=== PATIENT | female | born 1985 | race Asian ===

== ENCOUNTER 2017-07-23 20:10 | Inpatient (IN) | payer SELFPAY ==
[~2017-07-23] VITALS: Ht 160 cm; Wt 55.3 kg
[2017-07-23] MEDS ORDERED: MISOPROSTOL 25 MCG TAB VG PRN (20:45)
[2017-07-23] MEDS: LACTATED RINGERS 1,000 ML IV SCH (21:20)
[2017-07-23 21:57] LABS: BASOPHILS # (AUTO) 0.1 K/uL (0.00-0.22); BASOPHILS % (AUTO) 0.6 % (0.0-2.0); EOSINOPHILS # (AUTO) 0.1 K/uL (0-0.4); HEMATOCRIT 33.8 % (36-48); HEMOGLOBIN 10.8 g/dL (12.0-16.0); LYMPHOCYTES # (AUTO) 1.8 K/uL (2.5-16.5); LYMPHOCYTES % (AUTO) 16.9 % (20.5-51.1); MEAN CORPUSCULAR HEMOGLOBIN 28 pg (27-31); MEAN CORPUSCULAR HGB CONC 32 g/dL (33-37); MEAN CORPUSCULAR VOLUME 86 fL (80-94); MONOCYTES # (AUTO) 0.5 K/uL (0.8-1.0); MONOCYTES % (AUTO) 4.4 % (1.7-9.3); NEUTROPHILS # (AUTO) 8.1 K/uL (1.8-7.7); NEUTROPHILS % (AUTO) 77.1 % (42.2-75.2); PLATELET COUNT (AUTO) 249 K/uL (140-450); RED BLOOD CELL COUNT(AUTO) 3.91 MIL/uL (4.20-5.40); RED CELL DISTRIBUTION WIDTH 14.2 % (11.6-13.7); WHITE BLOOD COUNT (AUTO) 10.6 K/uL (4.8-10.8)
[2017-07-23 22:07] LABS: APPEARANCE,URINE CLEAR (CLEAR); BILIRUBIN,URINE NEGATIVE (NEGATIVE); BLOOD, URINE NEGATIVE (NEGATIVE); COLOR,URINE YELLOW (YELLOW); LEUKOCYTE ESTERASE ,URINE NEGATIVE (NEGATIVE); NITRITE, URINE NEGATIVE (NEGATIVE); PH,URINE 6.5 (5.0-9.0); UGLUCOSE NEGATIVE (NEGATIVE)
[2017-07-23 22:12] LABS: ANION GAP 14.1 (8-16); CARBON DIOXIDE 21.5 mmol/L (21-32); CREATININE 0.7 mg/dL (0.6-1.3); POTASSIUM 3.6 mmol/L (3.5-5.1)
[2017-07-23 22:18] LABS: ALBUMIN 2.5 g/dL (3.4-5.0); TOTAL BILIRUBIN 0.5 mg/dL (0.0-1.0)
[2017-07-23] MEDS ORDERED: OXYTOCIN 10 UNITS/ML VIAL IM SCH (22:20)
[2017-07-23] MEDS ORDERED: METHYLERGONOVINE 0.2 MG/ML AMP IM PRN (22:20)
[2017-07-23] MEDS ORDERED: NALBUPHINE HYDROCHLORIDE 10 MG/ML VIAL IVP PRN (22:20)
[2017-07-23] MEDS ORDERED: PROMETHAZINE 25 MG/ML VIAL IVP PRN (22:20)
[2017-07-23] MEDS ORDERED: OXYTOCIN 20 UNITS in LACTATED RINGERS 1,000 ML IV SCH (22:20)
[2017-07-23] MEDS ORDERED: LACTATED RINGERS 500 ML IV ONE (22:20)
[2017-07-23 22:51] LABS: PROTHROMBIN TIME 9.7 secs (10.8-13.4)
[2017-07-23] MEDS ORDERED: AMPICILLIN 2,000 MG in NACL 0.9% MINI-BAG PLUS 100 ML IV SCH (23:00)
[2017-07-23] MEDS ORDERED: MISOPROSTOL 25 MCG TAB ONE (23:11)
[2017-07-23] MEDS ORDERED: AMPICILLIN 2,000 MG VIAL ONE (23:11)
[2017-07-24] MEDS ORDERED: AMPICILLIN 1,000 MG VIAL ONE ×4 (02:30→15:08)
[2017-07-24] MEDS: AMPICILLIN 1,000 MG in NACL 0.9% MINI-BAG PLUS 50 ML IV SCH ×4 (03:06→15:04)
[2017-07-24 03:14] VITALS: BP 122/63
[2017-07-24] MEDS ORDERED: OXYTOCIN 20 UNITS/LR PREMIX 1,000 ML IV ONE (04:56)
[2017-07-24] MEDS ORDERED: MISOPROSTOL 25 MCG TAB VG PRN (07:20)
[2017-07-24] MEDS: LACTATED RINGERS 1,000 ML IV SCH ×2 (08:33→11:02)
--- NOTE | 2017-07-24 09:05 | NUR ---
PATIENT HAS BEEN SCREENED AND CATEGORIZED LOW NUTRITION RISK. PATIENT WILL BE SEEN WITHIN 7 DAYS OF ADMISSION. 07/30/[address]
[2017-07-24] MEDS ORDERED: BUPIVACAINE 0.125%/NS PREMIX 250 ML ONE (09:51)
[2017-07-24] MEDS ORDERED: OXYTOCIN 10 UNITS/ML VIAL ONE (17:23)
[2017-07-24] MEDS ORDERED: MEASLES, MUMPS, AND RUBELLA 1 VIAL SQVAC PRN (18:45)
[2017-07-24] MEDS ORDERED: HYDROcodone/APAP 5/325 MG 1 TAB TAB PO PRN (18:45)
[2017-07-24] MEDS ORDERED: TEMAZEPAM 15 MG CAP PO PRN (18:45)
[2017-07-24] MEDS ORDERED: SODIUM PHOSPHATE 118 ML ENEM RC PRN (18:45)
[2017-07-24] MEDS ORDERED: BENZOCAINE/MENTHOL 20%-0.5% 60 GM CAN TP PRN (18:45)
[2017-07-24] MEDS ORDERED: oxyCODONE/APAP 5/325 MG 1 TAB TAB PO PRN (18:45)
[2017-07-24] MEDS ORDERED: DOCUSATE SOD/SENNA 50/8.6 MG 1 TAB PO SCH (21:00)
[2017-07-24] MEDS ORDERED: OXYTOCIN 20 UNITS in LACTATED RINGERS 1,000 ML IV SCH (22:20)
[2017-07-24] MEDS: IBUPROFEN 800 MG TAB PO PRN (22:26)
[2017-07-25] MEDS ORDERED: BETHANECHOL 25 MG TAB ONE (01:22)
[2017-07-25] MEDS: BETHANECHOL 5 MG TAB PO SCH ×2 (01:56→13:00)
[2017-07-25] MEDS: IBUPROFEN 800 MG TAB PO PRN (05:54)
[2017-07-25 06:54] LABS: HEMATOCRIT 32.2 % (36-48); HEMOGLOBIN 10.3 g/dL (12.0-16.0)
[2017-07-25 07:37] LABS: HEPATITIS B SURFACE ANTIGEN Negative (Negative)
== END 2017-07-25 21:10 | disposition home or self-care (01) | DRG 775 ==
LOC: MLD 20:10 → MFCC 07-24 20:40
PROVIDERS: ADMIT Obstetrics & Gynecology; ATTEND Obstetrics & Gynecology
PROC: 10E0XZZ Delivery of Products of Conception, External Approach (ICD-10-PCS; principal; 2017-07-24)
PROC: 10907ZC Drainage of Amniotic Fluid, Therapeutic from Products of Conception, Via Natural or Artificial Opening (ICD-10-PCS; 2017-07-24)
PROC: 0W8NXZZ Division of Female Perineum, External Approach (ICD-10-PCS; 2017-07-24)
PROC: 00HU33Z Insertion of Infusion Device into Spinal Canal, Percutaneous Approach (ICD-10-PCS; 2017-07-24)
PROC: 3E0R3CZ (ICD-10-PCS; 2017-07-24)
PROC: 3E0234Z Introduction of Serum, Toxoid and Vaccine into Muscle, Percutaneous Approach (ICD-10-PCS; 2017-07-25)
DX: O80 Encounter for full-term uncomplicated delivery (principal); Z23 Encounter for immunization; Z37.0 Single live birth; Z3A.39 39 weeks gestation of pregnancy
CPT/HCPCS: 36415; 51702; 59200; 80053; 81003; 85018; 85025; 85610; 85730; 86592; 86762; 86886; 86900; 86901; 87340; 90715; J0290; J2590; J3490; J7120